=== PATIENT | male | born 1945 | race Caucasian/White ===

== ENCOUNTER → 2017-05-20 | Outpatient (CLI) | payer OTHER | END | disposition home or self-care (01) | LOC: C.PATHSPEC 17:25 | PROVIDERS: ATTEND Ophthalmology | DX: D23.11 Other benign neoplasm of skin of right eyelid, including canthus (principal); D23.12 Other benign neoplasm of skin of left eyelid, including canthus; L82.1 Other seborrheic keratosis; L57.0 Actinic keratosis ==

== ENCOUNTER 2024-08-20 18:19 | Inpatient (IN) ==
--- NOTE | 2024-08-20 19:20 | Emergency Department Note ---
Impression & Plan Anxiety, Dizziness, Fall ED Provider Note Provider: Juan Manuel Douglas MD CHIEF COMPLAINT: Anxiety, dizzy, not eating HISTORY OF PRESENT ILLNESS: Patient is a 78-year-old gentleman past medical history of anxiety, hypothyroidism, prostate issues, hyperlipidemia presenting here today with nephew. Patient lives by himself. Evidently over the last several weeks has been having significant issues with anxiety and anxiety attacks as well as dizziness. No SI or HI reported. No hallucinations. Drinking water but not eating very well. Evidently last night stood and got dizzy and fell to the ground. States he might of been knocked out. Was able to make his way to the bed and get up after about half hour. Reports some bruising to his right elbow but denies significant pain. Denies headache currently. States his dizziness is really there when he stands up or goes to moves. Denies significant chest pain or shortness of breath or abdominal pain at this time. PAST MEDICAL HISTORY: As noted above MEDICATIONS: Reviewed home medication at the bedside with the patient SOCIAL HISTORY: Lives by himself, no recent alcohol use reported PHYSICAL EXAM: GENERAL: alert and oriented in no acute distress on stretcher Head: normocephalic and atraumatic EYES: No injection, discharge or icterus. NECK: Trachea midline. Supple without midline cervical tenderness ENT: Mucous membranes pink and moist. LUNGS: Airway patent. No retractions. Breath sounds clear with good air entry bilaterally. HEART: Regular rate and rhythm. No chest wall tenderness ABDOMEN: Soft and non-tender, without guarding or rebound. SKIN: Acyanotic, warm, dry, without rashes EXTREMITIES: Without swelling, tenderness or deformity other than some contusion to the right elbow but no significant bony tenderness good range of motion here NEUROLOGICAL: No focal deficits. No aphasia. No facial droop or slurred speech. Normal strength and tone in the extremities. Sensation to gross touch normal. Ambulatory but initially dizzy upon standing EK bpm sinus rhythm PAC. No acute ST segment elevation or depression with a QTc of 434. CONTINUOUS CARDIAC MONITORING: was ordered and showed a heart rate of 70s-90s bpm in sinus rhythm occasional PAC GCS 15. Patient's laboratory studies and imaging reviewed. Differential includes Benign positional vertigo, dehydration, hypovolemia, anemia, tumor, infection, hypoglycemia, electrolyte abnormalities, cardiac sources, intracerebral event, toxicologic, neurologic, psychiatric, anxiety, as well as other pathologies. IMPRESSION/MEDICAL DECISION MAKING: Was here recently reviewed prior ER visit from the . Patient did have a fall last night possible syncope associated with it. Dizziness is more positional in nature. Has been undergoing outpatient workup and has tried some medications including propranolol that when effective. Will bit Ativan to help calm the patient. Did discuss with him given the fall would repeat blood work and imaging today to exclude any head injury or any significant electrolyte abnormality although previous findings were reassuring. No evidence of significant trauma to his body and while there are some bruising to the elbow good range of motion I doubt occult fracture here. No SI or HI. Believe he show to have 2 issues the anxiety as well as then the dizziness and this fall and possible syncope yesterday. Given his age and this episode with a fall and possible syncopal and the ongoing dizziness do recommend that we further observe him here in the hospital. Ongoing evaluation and treatment of his anxiety and these anxiety issues can be completed as well. EKG blood work and CT imaging of the head were obtained. CT head per report without findings of acute cranial abnormality. No severe leukocytosis or anemia. No severe electrolyte abnormality signs of acute renal dysfunction. Troponin normalizes CK. No evidence of acute transaminitis or thyroid dysfunction. UA negative. Negative COVID testing. Patient with some improvement with small dose of Ativan here. Will be careful with his age not to overdo this. Given that he did again have this fall and has dizziness as well as anxiety issues and the fact he lives alone discussed with him staying further observation he was agreeable. Hospitalist team was consulted for evaluation and observation. DIAGNOSIS: Dizziness, anxiety, fall DISPOSITION: Hospitalist will evaluate Patient was agreeable with this plan. Past Med/Surg History Problem List (Updated 08/20/24 @ 20:59 by Juan Manuel Douglas M.D.) Fall (Acute) Dizziness (Acute) Anxiety (Acute) Dehydration (Acute) Encounter for pre-operative examination Medical History Anxiety Aortic root dilation Borderline dilation (3.9cm) per 12/2020 echo Depression Hypothyroidism Pulmonary nodules Stable per 01/15/21 CTS Surgical History Hx of bilateral cataract extraction Hx of colonoscopy Family History Other No significant family history Social History Smoking Status: Current every day smoker Cigarettes Per Day: ocas pipe; Second Hand Exposure: No; Do You Dip or Chew Tobacco: No; Hx Alcohol Use: Yes Hx Substance Use: No Preferred Language: Japanese Communication Ability: Effective Final Coat Sprayer Required: No Beliefs That Will Affect Care: None marital status: Single Current Living Situation: Alone current occupational status: unemployed Feels Safe at Home: Yes Assistive Devices: Glasses Allergies Allergies Allergy/AdvReac Type Severity Reaction Status Date / Time No Known Allergies Allergy Verified 02/09/21 08:43 Home Meds Home Medications Medication Instructions Recorded Confirmed B complex-C 500 mg-folic 400 1 tab PO DAILY 12/02/18 08/20/24 mcg-zinc 24 mg-copper 3 mg-vit E tablet (Stress B-Complex) tixovozp-nor-vktyb acid 0.4 1 tab PO DAILY 12/02/18 08/20/24 mg-lycopene 300 mcg-lutein 250 mcg tablet (Centrum Silver) buspirone 10 mg tablet 10 mg PO BID PRN Anxiety 02/02/21 08/20/24 doxepin 10 mg capsule 10 mg PO HS 02/02/21 08/20/24 levothyroxine 150 mcg tablet 150 mcg PO QAM 02/02/21 08/20/24 montelukast 10 mg tablet 10 mg PO PM 02/02/21 08/20/24 atorvastatin 10 mg tablet 10 mg PO DAILY 08/12/24 08/20/24 finasteride 5 mg tablet 5 mg PO DAILY 08/12/24 08/20/24 meloxicam 7.5 mg tablet 7.5 mg PO DAILY 08/12/24 08/20/24 tamsulosin 0.4 mg capsule 0.8 mg PO DAILY 08/12/24 08/20/24 Results & Data (ED) Vital Signs Vital Signs - 24 hr 08/20/24 18:29 08/20/24 20:12 08/20/24 20:12 Temperature 36.0 C L Temperature Source Temporal Artery Scan Pulse Rate 119 H 80 Pulse Rate [Apical] 80 Pulse Rhythm [Apical] Pulse Strength [Apical] Respiratory Rate 20 18 18 Respiratory Effort / Characteristics Non-Labored Spontaneous Non-Labored Respiratory Depth Normal Normal Respiratory Pattern Regular Blood Pressure 101/66 Blood Pressure [Right Arm] 122/91 Blood Pressure Mean 77 Blood Pressure Mean [Right Arm] 101 Blood Pressure Position [Right Arm] Lying Pulse Oximetry 95 100 100 Oxygen Delivery Method Room Air Room Air Room Air Sepsis Recent Fever Within 48 Hours No Sepsis New/Unexplained Change in Mental Status N/A Sepsis Action Taken by Nursing No Action Required 08/20/24 20:39 08/20/24 22:00 Temperature Temperature Source Pulse Rate 81 Pulse Rate [Apical] 72 Pulse Rhythm [Apical] Regular Pulse Strength [Apical] Normal Respiratory Rate 18 Respiratory Effort / Characteristics Non-Labored Respiratory Depth Normal Respiratory Pattern Regular Blood Pressure Blood Pressure [Right Arm] 120/79 Blood Pressure Mean Blood Pressure Mean [Right Arm] 92 Blood Pressure Position [Right Arm] Lying Pulse Oximetry 98 Oxygen Delivery Method Room Air Sepsis Recent Fever Within 48 Hours Sepsis New/Unexplained Change in Mental Status Sepsis Action Taken by Nursing Laboratory Data 08/20/24 19:28 08/20/24 19:28 Lab Results 08/20/24 08/20/24 08/20/24 Range/Units 19:28 19:35 20:00 WBC 5.78 (4.8-10.8) K/ul RBC 4.60 L (4.70-6.10) M/uL Hgb 13.9 L (14.0-18.0) g/dl Hct 39.5 L (42.0-52.0) % MCV 85.9 (80.0-100.0) fL MCH 30.2 (25.0-34.0) pg MCHC 35.2 (32.0-36.0) g/dL RDW Std Deviation 40.5 (36.4-46.3) fL RDW Coeff of Rafael 13.1 (11.5-14.5) % Plt Count 218 (130-400) K/uL MPV 10.2 (9.4-12.4) fL Immature Gran % (Auto) 0.3 % Neut % (Auto) 54.6 % Lymph % (Auto) 32.2 % [place] % (Auto) 10.9 % Eos % (Auto) 1.0 % Baso % (Auto) 1.0 % Neut # (Auto) 3.15 (1.40-6.50) K/uL Lymph # (Auto) 1.86 (1.20-3.40) K/uL [place] # (Auto) 0.63 H (0.11-0.59) K/uL Eos # (Auto) 0.06 (0.00-0.50) K/uL Baso # (Auto) 0.06 (0.00-0.20) K/uL Immature Gran # (Auto) 0.02 (0.01-0.20) K/uL PT Cancelled INR Cancelled Sodium 137 (136-145) mmol/L Potassium 4.2 (3.5-5.1) mmol/L Chloride 103 (98-107) mmol/L Carbon Dioxide 25 (21-32) mmol/L Anion Gap 9 (3-11) BUN 15 (6-23) mg/dl Creatinine 1.18 (0.6-1.4) mg/dl Est Cr Clr Drug Dosing 52.1 ml/min eGFR 63.16 BUN/Creatinine Ratio 12.7 (10-20) Glucose 110 H (70-99(Fasting)) mg/dl Calcium 10.4 H (8.6-10.3) mg/dl Magnesium 2.0 (1.7-2.4) mg/dl Total Bilirubin 0.9 (0.2-1.0) mg/dl AST 18 (13-39) U/L ALT 15 (7-52) U/L Alkaline Phosphatase 50 (34-104) U/L Total Creatine Kinase 88 (30-223) U/L Troponin I High Sens 5.3 (0-20) pg/ml Total Protein 6.5 (6.0-8.3) gm/dl Albumin 4.3 (3.4-5.0) gm/dl Globulin 2.2 L (2.5-4.0) gm/dl Albumin/Globulin Ratio 2.0 (0.9-2) TSH 0.866 (0.300-4.500) uIu/ml Urine Color Yellow Urine Appearance Clear (Clear) Urine pH 7.5 (4.5-7.5) Ur Specific [place] 1.010 (1.000-1.030) Urine Protein Negative (Negative) Urine Glucose (UA) Negative (Negative) Urine Ketones Negative (Negative) Urine Blood Negative (Negative) Urine Nitrite Negative (Negative) Urine Bilirubin Negative (Negative) Urine Urobilinogen Negative (Negative) Ur Leukocyte Esterase Trace H (Negative) Urine WBC (Auto) 0-5 (0-5) /hpf Urine RBC (Auto) 0-2 (0-2) /hpf U Hyaline Cast (Auto) 0-2 (0-2) /lpf U Epithel Cells (Auto) 0-2 (0-2) /hpf Urine Bacteria (Auto) None Seen (None Seen) SARS-CoV-2, RNA, NAAT NEGATIVE (NEGATIVE) 08/20/24 Range/Units 20:36 WBC (4.8-10.8) K/ul RBC (4.70-6.10) M/uL Hgb (14.0-18.0) g/dl Hct (42.0-52.0) % MCV (80.0-100.0) fL MCH (25.0-34.0) pg MCHC (32.0-36.0) g/dL RDW Std Deviation (36.4-46.3) fL RDW Coeff of Rafael (11.5-14.5) % Plt Count (130-400) K/uL MPV (9.4-12.4) fL Immature Gran % (Auto) % Neut % (Auto) % Lymph % (Auto) % [place] % (Auto) % Eos % (Auto) % Baso % (Auto) % Neut # (Auto) (1.40-6.50) K/uL Lymph # (Auto) (1.20-3.40) K/uL [place] # (Auto) (0.11-0.59) K/uL Eos # (Auto) (0.00-0.50) K/uL Baso # (Auto) (0.00-0.20) K/uL Immature Gran # (Auto) (0.01-0.20) K/uL PT 11.4 INR 1.1 Sodium (136-145) mmol/L Potassium (3.5-5.1) mmol/L Chloride (98-107) mmol/L Carbon Dioxide (21-32) mmol/L Anion Gap (3-11) BUN (6-23) mg/dl Creatinine (0.6-1.4) mg/dl Est Cr Clr Drug Dosing ml/min eGFR BUN/Creatinine Ratio (10-20) Glucose (70-99(Fasting)) mg/dl Calcium (8.6-10.3) mg/dl Magnesium (1.7-2.4) mg/dl Total Bilirubin (0.2-1.0) mg/dl AST (13-39) U/L ALT (7-52) U/L Alkaline Phosphatase (34-104) U/L Total Creatine Kinase (30-223) U/L Troponin I High Sens (0-20) pg/ml Total Protein (6.0-8.3) gm/dl Albumin (3.4-5.0) gm/dl Globulin (2.5-4.0) gm/dl Albumin/Globulin Ratio (0.9-2) TSH (0.300-4.500) uIu/ml Urine Color Urine Appearance (Clear) Urine pH (4.5-7.5) Ur Specific [place] (1.000-1.030) Urine Protein (Negative) Urine Glucose (UA) (Negative) Urine Ketones (Negative) Urine Blood (Negative) Urine Nitrite (Negative) Urine Bilirubin (Negative) Urine Urobilinogen (Negative) Ur Leukocyte Esterase (Negative) Urine WBC (Auto) (0-5) /hpf Urine RBC (Auto) (0-2) /hpf U Hyaline Cast (Auto) (0-2) /lpf U Epithel Cells (Auto) (0-2) /hpf Urine Bacteria (Auto) (None Seen) SARS-CoV-2, RNA, NAAT (NEGATIVE) Administered Medications Discontinued Medications Lorazepam (Lorazepam 0.5 Mg Tab) 0.5 mg PO NOW STA Stop: 08/20/24 19:12 Last Admin: 08/20/24 19:27 Dose: 0.5 mg Documented By: OJHN Lorazepam (Lorazepam 0.5 Mg Tab) 0.5 mg PO NOW STA Stop: 08/20/24 21:50 Last Admin: 08/20/24 21:54 Dose: 0.5 mg Documented By: [facility] Imaging Data Radiologist's Impression: Chest X-Ray 08/20/24 19:12 EXAM: XR chest 1V portable CLINICAL HISTORY: fall, dizzy TECHNIQUE: An X-ray image of the chest is obtained in AP projection. COMPARISON: 08/12/2024 FINDINGS: Pulmonary Parenchyma: Coarse reticular shadowing seen bilaterally is likely due to emphysematous changes. No evidence of definite consolidation, collapse, or focal opacities. No pulmonary nodules are identified. No evidence of pleural effusion or pleural thickening. Heart and Mediastinum: Heart size and shape are normal. No mediastinal widening or masses. No hilar or mediastinal lymphadenopathy. Bony Thorax: Age indeterminate fracture in right 9th rib along its angle. Soft Tissues: Soft tissues overlying the chest wall are unremarkable. IMPRESSION: 1. Bilateral COPD changes. 2. No acute cardiopulmonary abnormalities are identified. 3. Age indeterminate fracture in right 9th rib along its angle. 4. No interval change is noted. Electronically signed by Robson Francois 08-20-2024 8:[address] 08/20/24 19:12 Exam(s): CT HEAD Without Contrast EXAM: CT Head Without Intravenous Contrast CLINICAL HISTORY: Reason for exam: fall, dizzy. TECHNIQUE: Axial computed tomography images of the head/brain without intravenous contrast. CTDI is 36.67 mGy and DLP is 624.41 mGy-cm. Automated exposure control was utilized for the study. A dose lowering technique was utilized adhering to the principles of ALARA. COMPARISON: 08/12/2024 FINDINGS: Brain: No intracranial hemorrhage, mass-effect, or cerebral edema. Atrophy and chronic microvascular ischemic changes. Ventricles: Unremarkable. Bones/joints: Unremarkable. No fracture. Soft tissues: Unremarkable. Sinuses: No acute sinusitis. Mastoid air cells: Unremarkable as visualized. IMPRESSION: 1. No acute intracranial abnormality. 2. Atrophy and chronic microvascular ischemic changes. Electronically signed by: Mendoza Porras MD 08/20/24 20:24 PM Discharge Plan Visit Data Chief Complaint: Anxiety Stated Complaint: CONFUSION, DIZZY, NO SLEEP, ANXIETY, PANIC ATTACKS ED Provider: Juan Manuel Douglas Discharge Problem: Anxiety, Dizziness, Fall Patient Disposition: Being Evaluated by Hospitalist Forms Stand Alone Forms: [facility], Suicide Prevention Resources Prescriptions Prescriptions: No Action Centrum Silver 0.4-300-250 mg-mcg-mcg Tablet 1 tab PO DAILY Stress B-Complex 500 mg-400 mcg- 24 mg-3 mg Tablet 1 tab PO DAILY doxepin 10 mg Capsule 10 mg PO HS buspirone 10 mg Tablet 10 mg PO BID PRN (Reason: Anxiety) levothyroxine 150 mcg Tablet 150 mcg PO QAM montelukast 10 mg Tablet 10 mg PO PM atorvastatin 10 mg tablet 10 mg PO DAILY meloxicam 7.5 mg tablet 7.5 mg PO DAILY tamsulosin 0.4 mg capsule 0.8 mg PO DAILY finasteride 5 mg tablet 5 mg PO DAILY Referrals Referrals: Sarath Hickman MD [Primary Care Provider] -
[2024-08-20] MEDS: LORazepam 0.5 MG TAB PO STA ×2 (19:27→21:54)
[2024-08-20 20:03] LABS: Basophils # (auto) 0.06 K/uL (0.00-0.20); Eosinophils # (auto) 0.06 K/uL (0.00-0.50); Hematocrit (blood only) 39.5 % (42.0-52.0); Hemoglobin 13.9 g/dl (14.0-18.0); Immature Granulocytes # (auto) 0.02 K/uL (0.01-0.20); Immature Granulocytes % (auto) 0.3 %; Lymphocytes # (auto) 1.86 K/uL (1.20-3.40); Lymphocytes % (auto) 32.2 %; Mean Corpuscular Hemoglobin 30.2 pg (25.0-34.0); Mean Corpuscular Hgb Conc 35.2 g/dL (32.0-36.0); Mean Corpuscular Volume 85.9 fL (80.0-100.0); Mean Platelet Volume 10.2 fL (9.4-12.4); Monocytes # (auto) 0.63 K/uL (0.11-0.59); Monocytes % (auto) 10.9 %; Neutrophils # (auto) 3.15 K/uL (1.40-6.50); Neutrophils % (auto) 54.6 %; Platelet Count 218 K/uL (130-400); RDW Coefficient of Variation 13.1 % (11.5-14.5); RDW Standard Deviation 40.5 fL (36.4-46.3); White Blood Count 5.78 K/ul (4.8-10.8)
[2024-08-20 20:17] LABS: Albumin Level 4.3 gm/dl (3.4-5.0); BUN Creatinine Ratio 12.7 (10-20); Bilirubin,Total 0.9 mg/dl (0.2-1.0); Calcium 10.4 mg/dl (8.6-10.3); Creatinine Clr Calc Pharmacy 52.1 ml/min; Globulin 2.2 gm/dl (2.5-4.0); Potassium 4.2 mmol/L (3.5-5.1); Total Protein 6.5 gm/dl (6.0-8.3)
[2024-08-20 20:24] LABS: Troponin I High Sensitivity 5.3 pg/ml (0-20)
--- NOTE | 2024-08-20 20:26 | CT Scan Report ---
Exam(s): CT HEAD Without Contrast EXAM: CT Head Without Intravenous Contrast CLINICAL HISTORY: Reason for exam: fall, dizzy. TECHNIQUE: Axial computed tomography images of the head/brain without intravenous contrast. CTDI is 36.67 mGy and DLP is 624.41 mGy-cm. Automated exposure control was utilized for the study. A dose lowering technique was utilized adhering to the principles of ALARA. COMPARISON: 08/12/2024 FINDINGS: Brain: No intracranial hemorrhage, mass-effect, or cerebral edema. Atrophy and chronic microvascular ischemic changes. Ventricles: Unremarkable. Bones/joints: Unremarkable. No fracture. Soft tissues: Unremarkable. Sinuses: No acute sinusitis. Mastoid air cells: Unremarkable as visualized. IMPRESSION: 1. No acute intracranial abnormality. 2. Atrophy and chronic microvascular ischemic changes. Electronically signed by: Mendoza Porras MD 08/20/24 20:24 PM
[2024-08-20 20:27] LABS: Appearance Urine Clear (Clear); Bacteria Urine Automated None Seen (None Seen); Bilirubin Urine Negative (Negative); Blood Urine Negative (Negative); Cast Urine Automated 0-2 /lpf (0-2); Color Urine Yellow; Epithelial Cell Urine Auto 0-2 /hpf (0-2); Glucose Urine UA Negative (Negative); Ketones Urine Negative (Negative); Leukocyte Esterase Urine Trace (Negative); Nitrite Urine Negative (Negative); Protein Urine Negative (Negative); RBC Urine Automated 0-2 /hpf (0-2); Urobilinogen Urine Negative (Negative); WBC Urine Automated 0-5 /hpf (0-5); pH Urine 7.5 (4.5-7.5)
[2024-08-20 20:31] LABS: Thyroid Stimulating Hormone 0.866 uIu/ml (0.300-4.500)
--- NOTE | 2024-08-20 20:58 | XRay Report ---
EXAM: XR chest 1V portable CLINICAL HISTORY: fall, dizzy TECHNIQUE: An X-ray image of the chest is obtained in AP projection. COMPARISON: 08/12/2024 FINDINGS: Pulmonary Parenchyma: Coarse reticular shadowing seen bilaterally is likely due to emphysematous changes. No evidence of definite consolidation, collapse, or focal opacities. No pulmonary nodules are identified. No evidence of pleural effusion or pleural thickening. Heart and Mediastinum: Heart size and shape are normal. No mediastinal widening or masses. No hilar or mediastinal lymphadenopathy. Bony Thorax: Age indeterminate fracture in right 9th rib along its angle. Soft Tissues: Soft tissues overlying the chest wall are unremarkable. IMPRESSION: 1. Bilateral COPD changes. 2. No acute cardiopulmonary abnormalities are identified. 3. Age indeterminate fracture in right 9th rib along its angle. 4. No interval change is noted. Electronically signed by Robson Francois 08-20-2024 8:58 PM
[2024-08-20 21:33] LABS: INR 1.1 (0.9-1.1); Prothrombin Time 11.4 Seconds (9.0-12.0)
--- NOTE | 2024-08-20 23:02 | History & Physical Report ---
Date of Service August 20, 2024 Assessment & Plan (1) Syncope: Plan: 78-year-old male with past medical history significant for hypothyroidism, hyperlipidemia, lung nodule, seasonal allergic rhinitis, aortic root dilatation, BPH, persistent insomnia, depression with anxiety presents with syncope and also complains of dizziness, anxiety and panic attacks. Patient lives alone. Patient was brought in by nephew. Last night patient says passed out. He was on the floor he does not know how long but he crawled into the bed and does not remember those events. Denies any biting of the tongue. Denies any incontinence. Denies any injury to head. States has some injury to the right elbow. Says his main symptom are dizziness, vertigo, anxiety and panic attacks. Earlier had some chest discomfort resolved now. Denies any shortness of breath. No cough. No fevers. No nausea. No abdominal pain. Normal bowel and bladder movements. Patient is somewhat poor historian. Currently resting comfortably and hemodynamically stable. Syncope Fall CT head is okay EKG okay. Troponin negative Will monitor on telemetry Will check orthostatics Will follow labs and echo Consult cardiology in a.m. for further recommendation Anxiety Panic attacks Depression Continue home medications for now Psychiatry consult [place] [facility] OT when stable Patient lives alone Hypothyroidism On Synthyroid TSH okay Hyperlipidemia On statin Aortic root dilatation Will follow echo DVT prophylaxis Lovenox Disposition Med/telemetry Full code History of Present Illness Chief Complaint: Syncope, dizziness, anxiety and panic attacks. Primary Care Provider: Sarath Hickman MD 78-year-old male with past medical history significant for hypothyroidism, hyperlipidemia, lung nodule, seasonal allergic rhinitis, aortic root dilatation, BPH, persistent insomnia, depression with anxiety presents with syncope and also complains of dizziness, anxiety and panic attacks. Patient lives alone. Patient was brought in by nephew. Last night patient says passed out. He was on the floor he does not know how long but he crawled into the bed and does not remember those events. Denies any biting of the tongue. Denies any incontinence. Denies any injury to head. States has some injury to the right elbow. Says his main symptom are dizziness, vertigo, anxiety and panic attacks. Earlier had some chest discomfort resolved now. Denies any shortness of breath. No cough. No fevers. No nausea. No abdominal pain. Normal bowel and bladder movements. Patient is somewhat poor historian. Currently resting comfortably and hemodynamically stable. Past medical history. As mentioned above Past surgical history. Bilateral cataracts. Umbilical hernia repair. Social history. Someday smokes pipe. Alcohol 2 shots every few days as per epic. No drug use. Family history. Father had Alzheimer's disease. Cancer. Mother had CABG. Sister had blood clots in legs. Brother had pacemaker. Allergies Allergy/AdvReac Type Severity Reaction Status Date / Time No Known Allergies Allergy Verified 02/09/21 08:43 Home Medications Medication Instructions Recorded Confirmed Type B complex-C 500 mg-folic 400 1 tab PO DAILY 12/02/18 08/20/24 History mcg-zinc 24 mg-copper 3 mg-vit E tablet (Stress B-Complex) piaztpew-iea-ktnut acid 0.4 1 tab PO DAILY 12/02/18 08/20/24 History mg-lycopene 300 mcg-lutein 250 mcg tablet (Centrum Silver) buspirone 10 mg tablet 10 mg PO BID PRN Anxiety 02/02/21 08/20/24 History doxepin 10 mg capsule 10 mg PO HS 02/02/21 08/20/24 History levothyroxine 150 mcg tablet 150 mcg PO QAM 02/02/21 08/20/24 History montelukast 10 mg tablet 10 mg PO PM 02/02/21 08/20/24 History atorvastatin 10 mg tablet 10 mg PO DAILY 08/12/24 08/20/24 History finasteride 5 mg tablet 5 mg PO DAILY 08/12/24 08/20/24 History meloxicam 7.5 mg tablet 7.5 mg PO DAILY 08/12/24 08/20/24 History tamsulosin 0.4 mg capsule 0.8 mg PO DAILY 08/12/24 08/20/24 History Past Med/Surg History Problem List (Updated 08/20/24 @ 23:05 by Laureano Villafana MD) Syncope Fall (Acute) Dizziness (Acute) Anxiety (Acute) Dehydration (Acute) Encounter for pre-operative examination Medical History Anxiety Aortic root dilation Borderline dilation (3.9cm) per 12/2020 echo Depression Hypothyroidism Pulmonary nodules Stable per 01/15/21 CTS Surgical History Hx of bilateral cataract extraction Hx of colonoscopy Family History Other No significant family history Social History Smoking Status: Current some day smoker Tobacco Type: Pipe Cigarettes Per Day: ocas pipe; Second Hand Exposure: No; Do You Dip or Chew Tobacco: No; Hx Alcohol Use: No Hx Substance Use: No Preferred Language: Bahamian Communication Ability: Effective V[place]ette Required: No Beliefs That Will Affect Care: None marital status: Single Current Living Situation: Alone current occupational status: unemployed Feels Safe at Home: Yes Safety Concerns: Feels Safe At This Time Assistive Devices: Glasses Review of Systems Review of Systems: All systems reviewed & are unremarkable except as noted in HPI & below Physical Exam Physical Exam: General- Not in distress Head- atraumatic Eyes- PERRL. ENT- oropharynx clear Neck- supple, no JVD. Lungs- clear to auscultation no wheezing or crackles Heart- regular rate and rhythm; no murmur, no gallop. Abdomen- normal bowel sounds, soft, nontender, no distension Extremities- no pretibial edema, no erythema seen Neuro- alert, oriented x 3(could tell month but not able to tell year); PERRL, no facial palsy; no dysarthria; motor 5/5 bilaterally. Skin- warm & dry Results & Data Results & Data Vital Signs (Past 12 Hours) Vital Signs Temp Pulse Pulse Resp BP BP Pulse Ox 08/20/24 22:00 72 18 120/79 98 08/20/24 20:39 81 08/20/24 20:12 80 18 122/91 100 08/20/24 20:12 80 18 100 08/20/24 18:29 36.0 C L 119 H 20 101/66 95 O2 Del Method 08/20/24 22:00 Room Air 08/20/24 20:39 08/20/24 20:12 Room Air 08/20/24 20:12 Room Air 08/20/24 18:29 Room Air Diagnostic Findings Laboratory Results WBC 5.78 K/ul (4.8-10.8) 08/20/24 19:28 RBC 4.60 M/uL (4.70-6.10) L 08/20/24 19:28 Hgb 13.9 g/dl (14.0-18.0) L 08/20/24 19: Hct 39.5 % (42.0-52.0) L 08/20/24: MCV 85.9 fL (80.0-100.0) 08/20/24: MCH 30.2 pg (25.0-34.0) 08/20/24: MCHC 35.2 g/dL (32.0-36.0) 08/20/24: RDW Std Deviation 40.5 fL (36.4-46.3) 08/20/24: RDW Coeff of Rafael 13.1 % (11.5-14.5) 08/20/24 Plt Count 218 K/uL (130-400) 08/20/24: MPV 10.2 fL (9.4-12.4) 08/20/24: Immature Gran % (Auto) 0.3 % 08/20/24: Neut % (Auto) 54.6 % 08/20/24 19: Lymph % (Auto) 32.2 % 08/20/24 19: [place] % (Auto) 10.9 % 08/20/24 19: Eos % (Auto) 1.0 % 08/20/24: Baso % (Auto) 1.0 % 08/20/24: Neut # (Auto) 3.15 K/uL (1.40-6.50) 08/20/24: Lymph # (Auto) 1.86 K/uL (1.20-3.40) 08/20/24 19: [place] # (Auto) 0.63 K/uL (0.11-0.59) H 08/20/24: Eos # (Auto) 0.06 K/uL (0.00-0.50) 08/20/24: Baso # (Auto) 0.06 K/uL (0.00-0.20) 08/20/24: Immature Gran # (Auto) 0.02 K/uL (0.01-0.20) 08/20/24 19: PT 11.4 Seconds (9.0-12.0) 08/20/24 20:36 INR 1.1 (0.9-1.1) 08/20/24 20:36 Sodium 137 mmol/L (136-145) 08/20/24 19:28 Potassium 4.2 mmol/L (3.5-5.1) 08/20/24 19:28 Chloride 103 mmol/L (98-107) 08/20/24 19:28 Carbon Dioxide 25 mmol/L (21-32) 08/20/24 19:28 Anion Gap 9 (3-11) 08/20/24 19:28 BUN 15 mg/dl (6-23) 08/20/24 19:28 Creatinine 1.18 mg/dl (0.6-1.4) 08/20/24 19:28 Est Cr Clr Drug Dosing 52.1 ml/min 08/20/24 19:28 eGFR 63.16 08/20/24 19:28 BUN/Creatinine Ratio 12.7 (10-20) 08/20/24 19:28 Glucose 110 mg/dl (70-99(Fasting)) H 08/20/24 19:28 Calcium 10.4 mg/dl (8.6-10.3) H 08/20/24 19:28 Magnesium 2.0 mg/dl (1.7-2.4) 08/20/24 19:28 Total Bilirubin 0.9 mg/dl (0.2-1.0) 08/20/24 19:28 AST 18 U/L (13-39) 08/20/24 19:28 ALT 15 U/L (7-52) 08/20/24 19:28 Alkaline Phosphatase 50 U/L (34-104) 08/20/24 19:28 Total Creatine Kinase 88 U/L (30-223) 08/20/24 19:28 Troponin I High Sens 5.3 pg/ml (0-20) 08/20/24 19:28 Total Protein 6.5 gm/dl (6.0-8.3) 08/20/24 19:28 Albumin 4.3 gm/dl (3.4-5.0) 08/20/24 19:28 Globulin 2.2 gm/dl (2.5-4.0) L 08/20/24 19:28 Albumin/Globulin Ratio 2.0 (0.9-2) 08/20/24 19:28 TSH 0.866 uIu/ml (0.300-4.500) 08/20/24 19:28 Urine Color Yellow 08/20/24 20:00 Urine Appearance Clear (Clear) 08/20/24 20:00 Urine pH 7.5 (4.5-7.5) 08/20/24 20:00 Ur Specific [place] 1.010 (1.000-1.030) 08/20/24 20:00 Urine Protein Negative (Negative) 08/20/24 20:00 Urine Glucose (UA) Negative (Negative) 08/20/24 20:00 Urine Ketones Negative (Negative) 08/20/24 20:00 Urine Blood Negative (Negative) 08/20/24 20:00 Urine Nitrite Negative (Negative) 08/20/24 20:00 Urine Bilirubin Negative (Negative) 08/20/24 20:00 Urine Urobilinogen Negative (Negative) 08/20/24 20:00 Ur Leukocyte Esterase Trace (Negative) H 08/20/24 20:00 Urine WBC (Auto) 0-5 /hpf (0-5) 08/20/24 20:00 Urine RBC (Auto) 0-2 /hpf (0-2) 08/20/24 20:00 U Hyaline Cast (Auto) 0-2 /lpf (0-2) 08/20/24 20:00 U Epithel Cells (Auto) 0-2 /hpf (0-2) 08/20/24 20:00 Urine Bacteria (Auto) None Seen (None Seen) 08/20/24 20:00 SARS-CoV-2, RNA, NAAT NEGATIVE (NEGATIVE) 08/20/24 19:35 Impressions Chest X-Ray 08/20/24 19:12 EXAM: XR chest 1V portable CLINICAL HISTORY: fall, dizzy TECHNIQUE: An X-ray image of the chest is obtained in AP projection. COMPARISON: 08/12/2024 FINDINGS: Pulmonary Parenchyma: Coarse reticular shadowing seen bilaterally is likely due to emphysematous changes. No evidence of definite consolidation, collapse, or focal opacities. No pulmonary nodules are identified. No evidence of pleural effusion or pleural thickening. Heart and Mediastinum: Heart size and shape are normal. No mediastinal widening or masses. No hilar or mediastinal lymphadenopathy. Bony Thorax: Age indeterminate fracture in right 9th rib along its angle. Soft Tissues: Soft tissues overlying the chest wall are unremarkable. IMPRESSION: 1. Bilateral COPD changes. 2. No acute cardiopulmonary abnormalities are identified. 3. Age indeterminate fracture in right 9th rib along its angle. 4. No interval change is noted. Electronically signed by Robson Francios 08-20-2024 8:[address] 08/20/24 19:12 Exam(s): CT HEAD Without Contrast EXAM: CT Head Without Intravenous Contrast CLINICAL HISTORY: Reason for exam: fall, dizzy. TECHNIQUE: Axial computed tomography images of the head/brain without intravenous contrast. CTDI is 36.67 mGy and DLP is 624.41 mGy-cm. Automated exposure control was utilized for the study. A dose lowering technique was utilized adhering to the principles of ALARA. COMPARISON: 08/12/2024 FINDINGS: Brain: No intracranial hemorrhage, mass-effect, or cerebral edema. Atrophy and chronic microvascular ischemic changes. Ventricles: Unremarkable. Bones/joints: Unremarkable. No fracture. Soft tissues: Unremarkable. Sinuses: No acute sinusitis. Mastoid air cells: Unremarkable as visualized. IMPRESSION: 1. No acute intracranial abnormality. 2. Atrophy and chronic microvascular ischemic changes. Electronically signed by: Mendoza Porras MD 08/20/24 20:24 PM ECG Additional Comments: ECG. Sinus rhythm with PACs with rate of 84. No significant change was found. QTc 434 Code Status & VTE Plan VTE Prophylaxis Plan VTE Prophylaxis will be ordered: Yes
[2024-08-20] MEDS ORDERED: POLYETHYLENE (MIRALAX) 17 GM PACK PO PRN (23:33)
[2024-08-20] MEDS ORDERED: NITROGLYCERIN SL 0.4 MG/TAB TAB SL PRN (23:33)
[2024-08-20] MEDS ORDERED: ACETAMINOPHEN 325 MG TAB PO PRN (23:33)
[2024-08-21] MEDS: SODIUM CHLORIDE 0.9% 1,000 ML IV SCH (00:20)
[2024-08-21] MEDS: busPIRone 5 MG TAB PO PRN (00:52)
[2024-08-21] MEDS: FLUTICASONE PROPIONATE NA SPR 16 GM BTL STA (02:34)
[2024-08-21 07:54] LABS: Basophils # (auto) 0.05 K/uL (0.00-0.20); Basophils % (auto) 1.2 %; Eosinophils # (auto) 0.18 K/uL (0.00-0.50); Eosinophils % (auto) 4.5 %; Hematocrit (blood only) 36.3 % (42.0-52.0); Hemoglobin 12.8 g/dl (14.0-18.0); Immature Granulocytes # (auto) 0.01 K/uL (0.01-0.20); Immature Granulocytes % (auto) 0.2 %; Lymphocytes # (auto) 1.36 K/uL (1.20-3.40); Lymphocytes % (auto) 33.9 %; Mean Corpuscular Hemoglobin 31.1 pg (25.0-34.0); Mean Corpuscular Hgb Conc 35.3 g/dL (32.0-36.0); Mean Corpuscular Volume 88.1 fL (80.0-100.0); Mean Platelet Volume 9.7 fL (9.4-12.4); Monocytes # (auto) 0.48 K/uL (0.11-0.59); Neutrophils # (auto) 1.93 K/uL (1.40-6.50); Neutrophils % (auto) 48.2 %; Platelet Count 187 K/uL (130-400); RDW Coefficient of Variation 13.1 % (11.5-14.5); Red Blood Count 4.12 M/uL (4.70-6.10); White Blood Count 4.01 K/ul (4.8-10.8)
[2024-08-21] MEDS: ATORVASTATIN 10 MG TAB PO SCH (08:01)
[2024-08-21] MEDS: ENOXAPARIN INJ 40 MG/0.4 ML SYR SQ SCH (08:01)
[2024-08-21] MEDS: LEVOTHYROXINE SODIUM 150 MCG TABLET PO SCH (08:01)
[2024-08-21] MEDS: TAMSULOSIN HCL 0.4 MG CAP PO SCH (08:02)
[2024-08-21] MEDS: FINASTERIDE 5 MG TAB PO SCH (08:02)
[2024-08-21] MEDS: CEROVITE ADV FORMULA TAB PO SCH (08:02)
[2024-08-21 08:15] LABS: BUN Creatinine Ratio 13.2 (10-20); Calcium 8.9 mg/dl (8.6-10.3); Creatinine Clr Calc Pharmacy 67.6 ml/min; Potassium 3.8 mmol/L (3.5-5.1)
[2024-08-21 08:22] LABS: Troponin I High Sensitivity 10.4 pg/ml (0-20)
[2024-08-21 08:51] LABS: Folate (Folic Acid),Ser orPlas 13.8 ng/ml (>5.38)
[2024-08-21] MEDS ORDERED: [UNRECOGNIZED DRUG - OTHER] PO SCH (09:00)
--- NOTE | 2024-08-21 09:14 | Cardiology Consultation ---
Date of Consultation August 21, 2024 Assessment & Plan (1) Dizziness: (2) Aortic root dilation: Plan Patient is a rather poor historian. Admitted for dizziness. Possible syncope, but events are not clear. No injuries. Cardiology consulted for evaluation of possible syncope. Echo pending HS troponin unremarkable. EKG and telemetry unremarkable. Upon admission his BP was borderline low. Possible dehydration contributing. Family reports poor PO intake of food/liquid/nutrition over the last few days/months. ? Failure to thrive. There seems to be concerns regarding worsening mental status - agitation/depression - Would consider dementia work up? May not be safe to return home alone. Continue telemetry to verify no arrhythmias will review echo when available. If unremarkable, no further cardiac testing warranted. Case discussed with Dr. Coyne I spent a total of 50 minutes on the date of service in preparation, delivery, and documentation of the care provided to this patient, excluding any time spent in the performance of separately billed services. Sho Hernandez PA-C Department of Cardiology, [facility] This chart was completed in part utilizing Speech Voice Recognition Software. Grammatical errors, random word insertions, pronoun errors, and incomplete sentences are an occasional consequence of this system due to software limitations, ambient noise, and hardware issues. Any formal questions or concerns about the content, text, or information contained within the body of this dictation should be directly addressed to the provider for clarification. Supervising Physician Co-Signing Physician Notes I have personally performed a history and physical examination on the patient. I have reviewed the advance practitioner's documentation, and I agree with, and take responsibility for the plan of care. 78-year-old male admitted with syncope versus fall. Poor historian due to probable underlying dementia. Patient requesting discharge. No dysrhythmias on telemetry since admission. Preliminary view of bedside echocardiogram demonstrates preserved LV systolic function without significant valvular abnormality. Continue telemetry monitoring during hospitalization. Consider outpatient 14-day ZIO monitor for further evaluation upon discharge. No further inpatient cardiac testing or intervention recommended at this time. Shankar Coyne DO, [facility] History of Present Illness Reason for Consultation: Dizziness; Possible Syncope Requesting Physician: Neil Gonsales Attending Physician: Dr. Coyne History of Present Illness Patient is a 78 year old male who presented to [facility] with complaints of intermittent dizziness, possible syncope, and anxiety. Nephew at bedside, who brought patient to ER last night after finding him agitated and more confused at home. Apparently patient awakend on the floor and was not sure how he got there. He recalls feeling dizzy earlier in the day. He does not recall events. No known injury. Poor historian. Nephew reports patient has had alot of anxiety and "panic attacks" recently. He is questioning whether patient has some dementia as well. Worsening mental status. Nephew also reports poor appetite. Patient lives alone No chest pain or dyspnea reported. Since admission, EKG demonstrates normal sinus rhythm with occ PAC. No arrhythmias on telemetry. BP has been controlled. HS troponin negative. History includes: 1. Dilated aortic root and ascending aorta measuring 4.1/4.2 cm per echco in Feb 2024 2. dyslipidemia 3. Anxiety 4. Hypothyroidism Allergies Allergy/AdvReac Type Severity Reaction Status Date / Time No Known Allergies Allergy Verified 02/09/21 08:43 Home Medications Medication Instructions Recorded Confirmed Type B complex-C 500 mg-folic 400 1 tab PO DAILY 12/02/18 08/20/24 History mcg-zinc 24 mg-copper 3 mg-vit E tablet (Stress B-Complex) jwiziwfr-uht-nraik acid 0.4 1 tab PO DAILY 12/02/18 08/20/24 History mg-lycopene 300 mcg-lutein 250 mcg tablet (Centrum Silver) doxepin 10 mg capsule 10 mg PO HS 02/02/21 08/20/24 History levothyroxine 150 mcg tablet 150 mcg PO QAM 02/02/21 08/20/24 History montelukast 10 mg tablet 10 mg PO PM 02/02/21 08/20/24 History atorvastatin 10 mg tablet 10 mg PO DAILY 08/12/24 08/20/24 History finasteride 5 mg tablet 5 mg PO DAILY 08/12/24 08/20/24 History meloxicam 7.5 mg tablet 7.5 mg PO DAILY 08/12/24 08/20/24 History tamsulosin 0.4 mg capsule 0.8 mg PO DAILY 08/12/24 08/20/24 History sertraline 50 mg tablet 25 mg (1/2 x 50 mg) PO QAM 60 days 08/21/24 Rx #30 tabs Patient History Medical History Anxiety Aortic root dilation Borderline dilation (3.9cm) per 12/2020 echo Depression Hypothyroidism Pulmonary nodules Stable per 01/15/21 CTS Surgical History Hx of bilateral cataract extraction Hx of colonoscopy Family History Other No significant family history Social History Smoking Status: Current some day smoker Tobacco Type: Pipe Cigarettes Per Day: ocas pipe; Second Hand Exposure: No; Do You Dip or Chew Tobacco: No; Hx Alcohol Use: No Hx Substance Use: No Preferred Language: Panamanian Communication Ability: Effective Shuttler Car Required: No Beliefs That Will Affect Care: None marital status: Single Current Living Situation: Alone current occupational status: unemployed Feels Safe at Home: Yes Safety Concerns: Feels Safe At This Time Assistive Devices: None Review of Systems Review of Systems: All systems reviewed & are unremarkable except as noted in HPI & below Physical Exam Constitutional: WD/WN, vitals as above average body habitus; no acute distress Neck: trachea midline, no thyromegaly Respiratory: no labored breathing and no cough Auscultation: lungs clear to auscultation bilaterally Cardiovascular: Rate/Rhythm: regular rate and regular rhythm Heart Sounds: no murmur Vessels: no JVD Extremities: no edema Gastrointestinal (Abdomen): normal bowel sounds, soft, nontender, no hepatosplenomegaly Musculoskeletal: no cyanosis or clubbing, extremities motor strength 5/5 Results & Data Vital Signs (Past 12 Hours) Vital Signs Temp Pulse Pulse Resp BP Pulse Ox Pulse Ox 08/21/24 07:34 72 08/21/24 06:13 71 12 132/75 97 08/21/24 02:25 36.8 C 62 18 103/62 100 08/21/24 02:24 66 18 103/62 99 08/21/24 02:24 99 08/20/24 23:54 89 08/20/24 22:00 72 18 120/79 98 O2 Del Method O2 Del Method 08/21/24 07:34 08/21/24 06:13 Room Air 08/21/24 02:25 Room Air 08/21/24 02:24 Room Air 08/21/24 02:24 Room Air 08/20/24 23:54 08/20/24 22:00 Room Air Laboratory Results Cardiac Enzymes 08/20/24 08/21/24 Range/Units 19:28 07:39 AST 18 (13-39) U/L Troponin I High Sens 5.3 10.4 D (0-20) pg/ml Coagulation 08/20/24 08/20/24 Range/Units 19:28 20:36 PT Cancelled 11.4 CBC 08/20/24 08/21/24 Range/Units 19: 07:39 WBC 5.78 4.01 L (4.8-10.8) K/ul RBC 4.60 L 4.12 L (4.70-6.10) M/uL Hgb 13.9 L 12.8 L (14.0-18.0) g/dl Hct 39.5 L 36.3 L (42.0-52.0) % Plt Count 218 187 (130-400) K/uL Neut # (Auto) 3.15 1.93 (1.40-6.50) K/uL Lymph # (Auto) 1.86 1.36 (1.20-3.40) K/uL Mckenzie # (Auto) 0.63 H 0.48 (0.11-0.59) K/uL Eos # (Auto) 0.06 0.18 (0.00-0.50) K/uL Baso # (Auto) 0.06 0.05 (0.00-0.20) K/uL Comprehensive Metabolic Panel 08/20/24 08/21/24 Range/Units 19:28 07:39 Sodium 137 139 (136-145) mmol/L Potassium 4.2 3.8 (3.5-5.1) mmol/L Chloride 103 108 H (98-107) mmol/L Carbon Dioxide 25 26 (21-32) mmol/L BUN 15 12 (6-23) mg/dl Creatinine 1.18 0.91 (0.6-1.4) mg/dl Glucose 110 H 105 H (70-99(Fasting)) mg/dl Calcium 10.4 H 8.9 (8.6-10.3) mg/dl AST 18 (13-39) U/L ALT 15 (7-52) U/L Alkaline Phosphatase 50 (34-104) U/L Total Protein 6.5 (6.0-8.3) gm/dl Albumin 4.3 (3.4-5.0) gm/dl Intake and Output 08/20/24 08/21/24 08/21/24 22:59 06:59 14:59 Other: # Unmeasured Voids 1 Weight 71.4 kg 71.4 kg Weight Measurement Method [facility] Diagnostic Findings Telemetry reviewed: NSR with occ PAC. No arrhythmias EKG reviewed: NSR with PAC's. no abnormal ST/T wave abnormalities Laboratory Results WBC 4.01 K/ul (4.8-10.8) L 08/21/24 07:39 RBC 4.12 M/uL (4.70-6.10) L 08/21/24 07:39 Hgb 12.8 g/dl (14.0-18.0) L 08/21/24 07:39 Hct 36.3 % (42.0-52.0) L 08/21/24 07:39 MCV 88.1 fL (80.0-100.0) 08/21/24 07:39 MCH 31.1 pg (25.0-34.0) 08/21/24 07:39 MCHC 35.3 g/dL (32.0-36.0) 08/21/24 07:39 RDW Std Deviation 42.0 fL (36.4-46.3) 08/21/24 07:39 RDW Coeff of Rafael 13.1 % (11.5-14.5) 08/21/24 07:39 Plt Count 187 K/uL (130-400) 08/21/24 07:39 MPV 9.7 fL (9.4-12.4) 08/21/24 07:39 Immature Gran % (Auto) 0.2 % 08/21/24 07:39 Neut % (Auto) 48.2 % 08/21/24 07:39 Lymph % (Auto) 33.9 % 08/21/24 07:39 Mckenzie % (Auto) 12.0 % 08/21/24 07:39 Eos % (Auto) 4.5 % 08/21/24 07:39 Baso % (Auto) 1.2 % 08/21/24 07:39 Neut # (Auto) 1.93 K/uL (1.40-6.50) 08/21/24 07:39 Lymph # (Auto) 1.36 K/uL (1.20-3.40) 08/21/24 07:39 Mckenzie # (Auto) 0.48 K/uL (0.11-0.59) 08/21/24 07:39 Eos # (Auto) 0.18 K/uL (0.00-0.50) 08/21/24 07:39 Baso # (Auto) 0.05 K/uL (0.00-0.20) 08/21/24 07:39 Immature Gran # (Auto) 0.01 K/uL (0.01-0.20) 08/21/24 07:39 PT 11.4 Seconds (9.0-12.0) 08/20/24 20:36 INR 1.1 (0.9-1.1) 08/20/24 20:36 Sodium 139 mmol/L (136-145) 08/21/24 07:39 Potassium 3.8 mmol/L (3.5-5.1) 08/21/24 07:39 Chloride 108 mmol/L (98-107) H 08/21/24 07:39 Carbon Dioxide 26 mmol/L (21-32) 08/21/24 07:39 Anion Gap 5 (3-11) 08/21/24 07:39 BUN 12 mg/dl (6-23) 08/21/24 07:39 Creatinine 0.91 mg/dl (0.6-1.4) 08/21/24 07:39 Est Cr Clr Drug Dosing 67.6 ml/min 08/21/24 07:39 eGFR 86.27 08/21/24 07:39 BUN/Creatinine Ratio 13.2 (10-20) 08/21/24 07:39 Glucose 105 mg/dl (70-99(Fasting)) H 08/21/24 07:39 Calcium 8.9 mg/dl (8.6-10.3) 08/21/24 07:39 Magnesium 2.0 mg/dl (1.7-2.4) 08/21/24 07:39 Total Bilirubin 0.9 mg/dl (0.2-1.0) 08/20/24 19:28 AST 18 U/L (13-39) 08/20/24 19:28 ALT 15 U/L (7-52) 08/20/24 19:28 Alkaline Phosphatase 50 U/L (34-104) 08/20/24 19:28 Total Creatine Kinase 88 U/L (30-223) 08/20/24 19:28 Troponin I High Sens 10.4 pg/ml (0-20) D 08/21/24 07:39 Total Protein 6.5 gm/dl (6.0-8.3) 08/20/24 19:28 Albumin 4.3 gm/dl (3.4-5.0) 08/20/24 19: Globulin 2.2 gm/dl (2.5-4.0) L 08/20/24 19: Albumin/Globulin Ratio 2.0 (0.9-2) 08/20/24 19: Vitamin B12 803 pg/ml (180-914) 08/21/24 07:39 Folate 13.80 ng/ml (>5.38) 08/21/24 07:39 TSH 0.866 uIu/ml (0.300-4.500) 08/20/24 19:28 Urine Color Yellow 08/20/24 20:00 Urine Appearance Clear (Clear) 08/20/24 20:00 Urine pH 7.5 (4.5-7.5) 08/20/24 20:00 Ur Specific Ramey 1.010 (1.000-1.030) 08/20/24 20:00 Urine Protein Negative (Negative) 08/20/24 20:00 Urine Glucose (UA) Negative (Negative) 08/20/24 20:00 Urine Ketones Negative (Negative) 08/20/24 20:00 Urine Blood Negative (Negative) 08/20/24 20:00 Urine Nitrite Negative (Negative) 08/20/24 20:00 Urine Bilirubin Negative (Negative) 08/20/24 20:00 Urine Urobilinogen Negative (Negative) 08/20/24 20:00 Ur Leukocyte Esterase Trace (Negative) H 08/20/24 20:00 Urine WBC (Auto) 0-5 /hpf (0-5) 08/20/24 20:00 Urine RBC (Auto) 0-2 /hpf (0-2) 08/20/24 20:00 U Hyaline Cast (Auto) 0-2 /lpf (0-2) 08/20/24 20:00 U Epithel Cells (Auto) 0-2 /hpf (0-2) 08/20/24 20:00 Urine Bacteria (Auto) None Seen (None Seen) 08/20/24 20:00 SARS-CoV-2, RNA, NAAT NEGATIVE (NEGATIVE) 08/20/24 19:35 Impressions Chest X-Ray 08/20/24 19:12 IMPRESSION: 1. Bilateral COPD changes. 2. No acute cardiopulmonary abnormalities are identified. 3. Age indeterminate fracture in right 9th rib along its angle. 4. No interval change is noted. Head CT 08/20/24 19:12 IMPRESSION: 1. No acute intracranial abnormality. 2. Atrophy and chronic microvascular ischemic changes. Outside data reviewed: Echo report reviewed from Feb 2024: Interpretation Summary The examination is adequate to evaluate the referral indication. The qualitative LV ejection fraction is 55-59% (normal). The LV wall thickness is mildly increased (concentric). The left ventricular diastolic function is mildly abnormal (grade I). Mild aortic valve sclerosis is present. Mild aortic valve regurgitation is present. The aortic root is mildly enlarged, 4.1 cm. The proximal ascending thoracic aorta is mildly enlarged, 4.2 cm. Compared to prior study of 01/12/2023, there is no significant change. Medications Administered Current Inpatient Medications Acetaminophen (Acetaminophen 325 Mg Tab) 650 mg PO Q4H PRN PRN Reason: Pain or Fever Stop: 09/19/24 23:32 Atorvastatin Calcium (Atorvastatin 10 Mg Tab) 10 mg PO DAILY MICHELLE Stop: 09/20/24 08:59 Last Admin: 08/21/24 08:01 Dose: 10 mg Doxepin HCl (Doxepin Hcl 10 Mg Capsule) 10 mg PO HS MICHELLE Stop: 09/20/24 20:59 Enoxaparin Sodium (Enoxaparin Inj 40 Mg/0.4 Ml Syr) 40 mg SQ Q24H MICHELLE Stop: 09/20/24 08:59 Last Admin: 08/21/24 08:01 Dose: 40 mg Finasteride (Finasteride 5 Mg Tab) 5 mg PO DAILY MICHELLE Stop: 09/20/24 08:59 Last Admin: 08/21/24 08:02 Dose: 5 mg Levothyroxine Sodium (Levothyroxine Sodium 150 Mcg Tablet) 150 mcg PO DAILYBB MICHELLE Stop: 09/20/24 06:29 Last Admin: 08/21/24 08:01 Dose: 150 mcg Montelukast Sodium (Montelukast Sodium 10 Mg Tablet) 10 mg PO PM MICHELLE Stop: 09/20/24 20:59 Multivitamins/Minerals (Cerovite Adv Formula Tab) 1 tab PO DAILY MICHELLE Stop: 09/20/24 08:59 Last Admin: 08/21/24 08:02 Dose: 1 tab Nitroglycerin (Nitroglycerin Sl 0.4 Mg/Tab Tab) 0.4 mg SL Q5M PRN PRN Reason: Chest Pain Stop: 09/19/24 23:32 Polyethylene Glycol (Polyethylene (Miralax) 17 Gm Pack) 17 gm PO DAILY PRN PRN Reason: Constipation Stop: 09/19/24 23:32 Sertraline HCl (Sertraline Hcl 50 Mg Tablet) 25 mg PO QAM MICHELLE Stop: 09/20/24 12:29 Tamsulosin HCl (Tamsulosin Hcl 0.4 Mg Cap) 0.8 mg PO DAILY MICHELLE Stop: 09/20/24 08:59 Last Admin: 08/21/24 08:02 Dose: 0.8 mg
[2024-08-21] MEDS: SERTRALINE HCL 50 MG TABLET PO SCH (14:21)
[2024-08-21 14:38] VITALS: BP 129/78; RESP 16; TEMP 97.7; O2SAT 100
--- NOTE | 2024-08-21 15:35 | Discharge Summary ---
Discharge Summary Date of Service August 21, 2024 Principal Dx & Hospital Course #1 = Principal Diagnosis (1) Syncope: Mr. Kim is a 78-year-old male with past medical history significant for hypothyroidism, hyperlipidemia, lung nodule, seasonal allergic rhinitis, aortic root dilatation, BPH, persistent insomnia, depression with anxiety presents with syncope and also complains of dizziness, anxiety and panic attacks. Patient has fallen at home and reports that he just feels anxious as the contributing factor. Patient declined psychiatry work up. Initially stated incorrect year, but promptly corrected and then stated he was in the hospital. He adamantly declines further evaluation and requests home services. Discussed case with nephew, reporting that patient is decisional at this time. Gave resources for [facility] and other [facility] resources to help nephew. #Reported Syncope #Mechanical Fall CT head is okay EKG okay. Troponin negative orthostats negative no arrhythmia noted ECHO WNL cardiac work up negative refuses pt/ot #Anxiety #Panic attacks #Depression declined psychiatry work up agreed to sertraline 25mg then to increase dosing #Hypothyroidism On Synthyroid TSH okay #Hyperlipidemia On statin #Aortic root dilatation reported normal on echo Notes For Next Care Provider Medication Changes From Visit Sertraline 25mg daily Admission HPI Per Admitting Provider 78-year-old male with past medical history significant for hypothyroidism, hyperlipidemia, lung nodule, seasonal allergic rhinitis, aortic root dilatation, BPH, persistent insomnia, depression with anxiety presents with syncope and also complains of dizziness, anxiety and panic attacks. Patient lives alone. Patient was brought in by nephew. Last night patient says passed out. He was on the floor he does not know how long but he crawled into the bed and does not remember those events. Denies any biting of the tongue. Denies any incontinence. Denies any injury to head. States has some injury to the right elbow. Says his main symptom are dizziness, vertigo, anxiety and panic attacks. Earlier had some chest discomfort resolved now. Denies any shortness of breath. No cough. No fevers. No nausea. No abdominal pain. Normal bowel and bladder movements. Patient is somewhat poor historian. Currently resting comfortably and hemodynamically stable. Past medical history. As mentioned above Past surgical history. Bilateral cataracts. Umbilical hernia repair. Social history. Someday smokes pipe. Alcohol 2 shots every few days as per [place]. No drug use. Family history. Father had Alzheimer's disease. Cancer. Mother had CABG. Sister had blood clots in legs. Brother had pacemaker. Admission Exam Per Admitting Provider General- Not in distress Head- atraumatic Eyes- PERRL. ENT- oropharynx clear Neck- supple, no JVD. Lungs- clear to auscultation no wheezing or crackles Heart- regular rate and rhythm; no murmur, no gallop. Abdomen- normal bowel sounds, soft, nontender, no distension Extremities- no pretibial edema, no erythema seen Neuro- alert, oriented x 3(could tell month but not able to tell year); PERRL, no facial palsy; no dysarthria; motor 5/5 bilaterally. Skin- warm & dry Discharge Exam Constitutional WD/WN, vitals as above Respiratory normal respiratory effort, lungs clear to auscultation Cardiovascular RRR, no murmur, no edema Neurologic PERRL, EOMI, accommodation nl, no face palsy, no dysarthria Updated Medication List Medication Instructions Recorded Confirmed Type B complex-C 500 mg-folic 400 1 tab PO DAILY 12/02/18 08/20/24 History mcg-zinc 24 mg-copper 3 mg-vit E tablet (Stress B-Complex) dadrfmau-vek-rjfyu acid 0.4 1 tab PO DAILY 12/02/18 08/20/24 History mg-lycopene 300 mcg-lutein 250 mcg tablet (Centrum Silver) doxepin 10 mg capsule 10 mg PO HS 02/02/21 08/20/24 History levothyroxine 150 mcg tablet 150 mcg PO QAM 02/02/21 08/20/24 History montelukast 10 mg tablet 10 mg PO PM 02/02/21 08/20/24 History atorvastatin 10 mg tablet 10 mg PO DAILY 08/12/24 08/20/24 History finasteride 5 mg tablet 5 mg PO DAILY 08/12/24 08/20/24 History meloxicam 7.5 mg tablet 7.5 mg PO DAILY 08/12/24 08/20/24 History tamsulosin 0.4 mg capsule 0.8 mg PO DAILY 08/12/24 08/20/24 History sertraline 50 mg tablet 25 mg (1/2 x 50 mg) PO QAM 60 days 08/21/24 Rx #30 tabs Hospital Stay Data Consultations 08/20/24 20:56 ED Decision to Admit Stat 08/21/24 07:15 Consult Behavioral Health Liaison Routine 08/21/24 08:00 Consult Cardiology Routine Diagnostic Imagining Performed 08/20/24 19:12 CT head/brain wo con Stat Pending Results Patient Have Any Pending Studies at Discharge: No Discharge Instructions Given to Patient (Per Discharging Provider) You were admitted for fall. There were no clear causes for your fall or dizziness. You noted extreme anxiety A new medicine was started call Sertraline (zoloft). You were started at a low dose of 25mg daily. Please take 25mg (0.5 tablet) for the next 3 days, then increase the dose to 50mg daily (1 tablet). A referral for [facility] at home was made Total Time Total Time Spent Total Time Spent (In Minutes): 45
[2024-08-21 15:57] VITALS: PULSE 89
[2024-08-21] MEDS ORDERED: MONTELUKAST SODIUM 10 MG TABLET PO SCH (21:00)
[2024-08-21] MEDS ORDERED: DOXEPIN HCL 10 MG CAPSULE PO SCH (21:00)
--- NOTE | 2024-08-22 20:32 | Electrocardiogram Report ---
Test Reason : Blood Pressure : */* mmHG Vent. Rate : 84 BPM Atrial Rate : 84 BPM P-R Int : 156 ms QRS Dur : 96 ms QT Int : 368 ms P-R-T Axes : 61 56 59 degrees QTcB Int : 434 ms Sinus rhythm with Premature supraventricular complexes Otherwise normal ECG When compared with ECG of 12-Aug-2024 10:24, No significant change was found Confirmed by Bandar Grimm ([id number]) on 08/22/2024 8:32:04 PM Referred By: REFERRED SELF Confirmed By: Bandar Grimm
--- NOTE | 2024-08-22 21:05 | Electrocardiogram Report ---
Test Reason : Blood Pressure : */* mmHG Vent. Rate : 71 BPM Atrial Rate : 71 BPM P-R Int : 172 ms QRS Dur : 98 ms QT Int : 386 ms P-R-T Axes : 85 50 49 degrees QTcB Int : 419 ms Sinus rhythm with frequent Premature atrial complexes Otherwise normal ECG When compared with ECG of 20-Aug-2024 19:33, (unconfirmed) No significant change Confirmed by Bandar Grimm ([id number]) on 08/22/2024 9:05:38 PM Referred By: REFERRED SELF Confirmed By: Bandar Grimm
== END 2024-08-21 16:00 | disposition home health service (06) | DRG 312 ==
LOC: ED 18:19 → EDINP 22:52 → 2N 23:33